=== PATIENT | female | born 1940 | race Caucasian/White ===

== ENCOUNTER 2017-01-28 18:43 | Emergency (ER) | payer MEDICARE ==
[~2017-01-28] VITALS: Ht 175.3 cm; Wt 95.2 kg
[~2017-01-28 18:43] MED LIST: ALBU0.63 NEB; BUDE10.2 INH; CITA20TA5 PO; LEVO112T4 PO; PREG200C PO; TIOT18CA INH
[2017-01-28] MEDS ORDERED: ONDANSETRON 2MG/ML, 2ML ONE ×2 (18:59→20:53)
[2017-01-28] MEDS ORDERED: PROMETHAZINE 25 MG SUPP PR ONE (19:00)
[2017-01-28] MEDS ORDERED: SODIUM CHLORIDE 0.9% 1,000ML IVBOLUS ONE (19:00)
[2017-01-28] MEDS ORDERED: SODIUM CHLORIDE FLUSH 10ML SYR IVF ONE (19:00)
[2017-01-28] MEDS ORDERED: ONDANSETRON 2MG/ML, 2ML IVPush ONE (19:00)
[2017-01-28 19:29] LABS: BLOOD UREA NITROGEN 13 mg/dL (7-18)
[2017-01-28] MEDS ORDERED: PLEASE ENTER HEIGHT AND WEIGHT MC SCH (19:30)
[2017-01-28 19:33] LABS: ASPARTATE AMINO TRANSFERASE 26 U/L (15-37)
[2017-01-28 19:34] LABS: IS PT STATUS REG ER OR PRE ER? YES
[2017-01-28] MEDS ORDERED: ONDA4TAB7 PO (19:34)
[2017-01-28] MEDS ORDERED: DIAZ5TAB4 PO (19:34)
[2017-01-28] MEDS ORDERED: PREG75CA PO (19:34)
[2017-01-28] MEDS ORDERED: TRAM50TA2 PO (19:34)
[2017-01-28] MEDS ORDERED: OXYC5CAP4 PO (19:34)
[2017-01-28] MEDS ORDERED: HYDROmorphone 1 MG/ML, 1ML ONE (20:53)
[2017-01-28] MEDS ORDERED: HYDROmorphone 1 MG/ML, 1ML IV ONE (21:00)
[2017-01-28] MEDS ORDERED: ONDANSETRON ODT 4 MG PO ONE (21:00)
[2017-01-28 22:00] VITALS: BP 130/61
== END 2017-01-28 22:20 | disposition home or self-care (01) ==
LOC: ED 22:00
DX: R11.2 Nausea with vomiting, unspecified (principal); F11.23 Opioid dependence with withdrawal; E03.9 Hypothyroidism, unspecified; J44.9 Chronic obstructive pulmonary disease, unspecified
CPT/HCPCS: 36415; 71010; 80053; 81001; 83690; 84484; 85025; 87086; 93005; 96361; 96374; 96375; 99285; J1170; J2405; J7030; Q0162

== ENCOUNTER → 2017-12-14 | Outpatient (CLI) | payer MEDICARE ==
[~2017-12-14] MED LIST changes: +DIAZ5TAB4 PO; +ONDA4TAB7 PO; +OXYC5CAP2 PO; +PREG75CA PO; +TRAM50TA2 PO
== END ==
LOC: CFH 15:34
PROVIDERS: ATTEND Internal Medicine
DX: J43.9 Emphysema, unspecified (principal); J84.10 Pulmonary fibrosis, unspecified; K80.20 Calculus of gallbladder without cholecystitis without obstruction
CPT/HCPCS: 71250